=== PATIENT | male | born 1995 | race Caucasian/White ===

== ENCOUNTER 2020-11-02 21:47 | Emergency (ER) | payer OTHER ==
[2020-11-03] MEDS ORDERED: OXY-IR 5MG5 MG PO (01:27)
== END 2020-11-03 02:05 | disposition home or self-care (01) ==
LOC: FER 21:47
DX: S22.058A Other fracture of T5-T6 vertebra, initial encounter for closed fracture (principal); S22.068A Other fracture of T7-T8 thoracic vertebra, initial encounter for closed fracture; F17.200 Nicotine dependence, unspecified, uncomplicated; V86.99XA Unspecified occupant of other special all-terrain or other off-road motor vehicle injured in nontraffic accident, initial encounter
CPT/HCPCS: 70450; 71250; 72125; 72128; 72131; J1170; J1885